=== PATIENT | female | born 1995 | race Caucasian/White ===

== ENCOUNTER 2017-08-10 19:50 | Emergency (ER) | payer BC ==
[2017-08-10 20:29] VITALS: BP 134/98
[2017-08-10] MEDS ORDERED: Albuterol/Ipratropium NEB.SOL* Albuterol 2.5 MG/Ipratropium 0.5 MG 3 ML INH ONE (21:12)
--- NOTE | 2017-08-10 21:13 | UC ---
Asthma HPI - HPI Summary HPI Summary: Patient here today with complaints of shortness of breath due to asthma Symptoms began at 1730 this afternoon - History of Current Complaint Chief Complaint: UCRespiratory Stated Complaint: SHORTNESS OF BREATH Time Seen by Provider: 08/10/17 20:53 Hx Obtained From: Patient Hx Last Menstrual Period: few months ago ?: No Onset/Duration: Sudden Onset Timing: Constant Initial Severity: Mild Current Severity: Mild Pain Intensity: 1 Location/Character: Cough (Nonproductive) Aggravating Factor(s): Nothing Alleviating Factor(s): Nothing Associated Signs and Symptoms: Positive: Negative - Allergy/Home Medications Allergies/Adverse Reactions: Allergies Allergy/AdvReac Type Severity Reaction Status Date / Time amoxicillin Allergy Nausea Verified 08/14/17 22:52 Penicillins Allergy Nausea Verified 08/14/17 22:52 PMH/Surg Hx/FS Hx/Imm Hx Previously Healthy: No Endocrine History: Hypothyroidism Respiratory History: Asthma GI/ History: Gastroesophageal Reflux - Surgical History Surgical History: Yes Surgery Procedure, Year, and Place: Breast reduction - Family History Known Family History: Positive: None - Social History Occupation: Student Lives: With Family Alcohol Use: None Substance Use Type: None Smoking Status (MU): Never Smoked Tobacco Review of Systems Constitutional: Negative Skin: Negative Eyes: Negative ENT: Negative Respiratory: Shortness Of Breath, Cough Cardiovascular: Negative Gastrointestinal: Negative Genitourinary: Negative Motor: Negative Neurovascular: Negative Musculoskeletal: Negative Neurological: Negative Psychological: Negative Is Patient Immunocompromised?: No All Other Systems Reviewed And Are Negative: Yes Physical Exam Triage Information Reviewed: Yes Appearance: Well-Appearing, No Pain Distress, Obese Vital Signs: Initial Vital Signs Temp 97.7 F 08/10/17 20:24 Pulse 136 08/10/17 20:24 Resp 18 08/10/17 20:24 BP 134/98 08/10/17 20:24 Pulse Ox 99 08/10/17 20:24 Vital Signs Reviewed: Yes Eye Exam: Normal Eyes: Positive: Conjunctiva Clear ENT Exam: Normal ENT: Positive: Normal ENT inspection, Hearing grossly normal, Pharynx normal, TMs normal, Uvula midline. Negative: Nasal congestion, Trismus, Muffled voice, Hoarse voice, Dental tenderness, Sinus tenderness Dental Exam: Normal Neck exam: Normal Neck: Positive: Supple, Nontender, No Lymphadenopathy Respiratory Exam: Normal Respiratory: Positive: Chest non-tender, No respiratory distress, No accessory muscle use, Wheezing Cardiovascular Exam: Normal Cardiovascular: Positive: No Murmur, Pulses Normal, Brisk Capillary Refill, Tachycardia Musculoskeletal Exam: Normal Musculoskeletal: Positive: Strength Intact, ROM Intact, No Edema Neurological Exam: Normal Neurological: Positive: Alert, Muscle Tone Normal Psychological Exam: Normal Psychological: Positive: Normal Response To Family, Age Appropriate Behavior Skin Exam: Normal Re-Evaluation - Re-Evaluation First Eval Change: Improved Asthma Course/Dx - Course Course Of Treatment: Patient reports having albuterol at home she is interested in following up with pulmonology patient was educated on how to use her albuterol how to use peak flow to predict changes in her asthma and the plan is that she is going to follow up with pulmonology and primary care - Differential Dx/Diagnosis Provider Diagnoses: Diagnosis acute exacerbation of asthma Discharge - Discharge Plan Condition: Stable Disposition: HOME Patient Education Materials: How to Use a Peak Flow Meter (ED), Bronchospasm ( ED) Referrals: Rose Mary Lewis MD [Medical Doctor] - 1 Week Andrew Guillaume MD [Primary Care Provider] -
== END 2017-08-10 22:19 | disposition home or self-care (01) ==
LOC: UCEAST 19:50
DX: J45.901 Unspecified asthma with (acute) exacerbation (principal); R00.0 Tachycardia, unspecified; E03.9 Hypothyroidism, unspecified; K21.9 Gastro-esophageal reflux disease without esophagitis; Z88.0 Allergy status to penicillin
CPT/HCPCS: 93005; 99212; A9270-GY; G0463

== ENCOUNTER 2017-08-14 22:43 | Emergency (ER) | payer BC ==
[2017-08-15] MEDS ORDERED: Metoprolol Tartrate TAB* 25 MG PO ONE (01:22)
[2017-08-15 02:03] VITALS: BP 132/89
--- NOTE | 2017-08-15 06:33 | ED ---
Ginny Vásquez Nilda, scribed for Durga Ruiz MD on 08/15/17 at 0230 . HPI Cardiac - HPI Summary HPI Summary: This patient is a 22 year old F presenting to [facility] accompanied by family and friend with a chief complaint of constant elevated heart rate (110 bpm at home) since 1700 today. The patient rates the pain 0/10 in severity. Symptoms aggravated by recent dosage increase in Methylphenidate, and alleviated by nothing. Patient reports anxiety, photophobia, nausea, and loss of appetite, but denies V/D. She states she felt similar symptoms on 08/10/17 when her medications were increased. PMHx includes hypothyroid and ADHD. - History of Current Complaint Chief Complaint: EDDysrhythmPalp Stated Complaint: RAPID HEART RATE Time Seen by Provider: 08/14/17 23:08 Hx Obtained From: Patient Hx Last Menstrual Period: few months ago Onset/Duration: Started Hours Ago, Still Present Timing: Constant Pain Intensity: 0 Pain Scale Used: 0-10 Numeric Chest Pain Radiates: No Character: Other: - elevated HR Aggravating Factor(s): Medications - recent dosage increase for Methylphenidate on 08/10/17 Alleviating Factor(s): Nothing Associated Signs and Symptoms: Positive: Other: - anxiety, photophobia, nausea, and loss of appetite, but denies V/D - Allergy/Home Medications Allergies/Adverse Reactions: Allergies Allergy/AdvReac Type Severity Reaction Status Date / Time amoxicillin Allergy Nausea Verified 08/14/17 22:52 Penicillins Allergy Nausea Verified 08/14/17 22:52 PMH/Surg Hx/FS Hx/Imm Hx Respiratory History: Reports: Hx Asthma Neurological History: Reports: Hx Migraine, Other Neuro Impairments/Disorders - fibromyalgia - Surgical History Surgery Procedure, Year, and Place: Breast reduction Infectious Disease History: No Infectious Disease History: Denies: Traveled Outside the [place] in Last 30 Days - Family History Known Family History: Positive: Cardiac Disease, Diabetes - Social History Alcohol Use: None Hx Substance Use: No Substance Use Type: Reports: None Hx Tobacco Use: No Smoking Status (MU): Never Smoked Tobacco Review of Systems Positive: Photophobia Positive: Other - elevated heart rate Positive: Nausea, Other - loss of appetite. Negative: Vomiting, Diarrhea Positive: Anxious All Other Systems Reviewed And Are Negative: Yes Physical Exam - Summary Physical Exam Summary: Appearance: Obese, no pain distress Skin: warm, dry, reflects adequate perfusion Head/face: normal Eyes: EOMI, JEFFREY ENT: normal Neck: supple, non-tender Respiratory: CTA, breath sounds present Cardiovascular: Tachycardia with resting HR 78 bpm, pulses symmetrical Abdomen: non-tender, soft Bowel: present Musculoskeletal: normal, strength/ROM intact Neuro: normal, sensory motor intact, A&Ox3 Psych: Normal Triage Information Reviewed: Yes Vital Signs On Initial Exam: Initial Vitals Temp Pulse Resp BP Pulse Ox 98.7 F 124 20 136/73 100 08/14/17 22:45 08/14/17 22:45 08/14/17 22:45 08/14/17 22:45 08/14/17 22:45 Vital Signs Reviewed: Yes Diagnostics - Vital Signs Vital Signs Temp Pulse Resp BP Pulse Ox 08/15/17 02:11 98 F 100 20 132/89 100 08/15/17 02:00 106 24 132/89 100 08/15/17 01:30 112 21 136/86 100 08/15/17 01:08 115 100 08/15/17 01:06 133/90 08/14/17 22:45 98.7 F 124 20 136/73 100 - Laboratory Lab Results: Lab Results 08/15/17 Range/Units 01:45 TSH 10.55 H (0.34-5.60) mcIU/mL Free T4 0.93 (0.61-1.12) ng/dL Lab Statement: Any lab studies that have been ordered have been reviewed, and results considered in the medical decision making process. - EKG 2259 Cardiac Rate: Tachycardia EKG Rhythm: Sinus Tachycardia - [address] Segment: Normal EKG Interpretation: nml axis Disposition - Course Course Of Treatment: Pt with HR 78 sleeping but over 100 sitting up etc. Single dose of metoprolol. All coincides with dose increase of methylphenidate. Return to old dose, f/u PMD. Assessment/Plan: An EKG reveals sinus tachycardia, 115 bpm, nl axis, nl ST. - Diagnoses Provider Diagnoses: Sinus tachycardia, Medication side effect Discharge - Discharge Plan Condition: Good Disposition: HOME Patient Education Materials: Tachycardia (ED) Referrals: Andrew Guillaume MD [Primary Care Provider] - Additional Instructions: Return to 18mg dose of your methylphenidate. Drink plenty of fluids. Have your doctor check the thyroid levels obtained tonight. Call your psychiatrist and inform them of the medication side effects. Return if worse or other concerns. The documentation as recorded by the Ginny hendrickson Nilda accurately reflects the service I personally performed and the decisions made by me, Durga Ruiz MD.
== END 2017-08-15 02:11 | disposition home or self-care (01) ==
LOC: ED 22:43
DX: R00.0 Tachycardia, unspecified (principal); T43.635A Adverse effect of methylphenidate, initial encounter; Z88.3 Allergy status to other anti-infective agents; Z88.0 Allergy status to penicillin
CPT/HCPCS: 36415; 84439; 84443; 93005; 99282

== ENCOUNTER 2017-08-29 12:58 | Emergency (ER) | payer BC ==
--- OUTSIDE RECORDS SUMMARY | 2017-08-29 13:53 | XMS REPORT ---
:1995 External Reference #:[id number] Author Organization [employer] Address [address] [place] [address] Phone [phone] Care Team Providers Name Role Phone Andrew Guillaume M.D. Primary Care Physician Unavailable Payers Type Date Identification Numbers Payment Provider Subscriber Commercial Policy Number: [id number] [place] Plan Raf Nicole PayID: [id number] [address] [place] [address] Problems Date Description Provider Status Onset: Primary fibromyalgia syndrome Active Onset: Migraine Active Onset: Mild depression Active Onset: Hyperthyroidism Active Onset: Gastroesophageal reflux disease Active Onset: Asthma Active Onset: 08/23/2017 Tear film insufficiency Pushpa Jean-Baptiste O.D. Active Onset: 07/20/2016 Regular astigmatism Pushpa Jean-Baptiste O.D. Active Onset: 07/20/2016 Myopia Pushpa Jean-Baptiste O.D. Active Onset: 04/14/2015 Exotropia Pushpa Jean-Baptiste O.D. Active Onset: 03/11/2015 Subjective visual disturbance Pushpa Jean-Baptiste O.D. 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 Student ETOH Use Denies alcohol use Smoking Patient has never smoked Recreational Drug Use Denies Drug Use Daily Caffeine Does Not Consume Caffeine Allergies, Adverse Reactions, Alerts Date Description Reaction Status Severity Comments 03/11/2015 Penicillin active Rash 03/11/2015 Amoxicillin active Rash Medications Medication Date Status Form Strength Qnty SIG Indications Ordering Provider Omeprazole / Active Capsules DR 20mg 2 twice a Unknown 0000 day Levothyroxine / Active Tablets 125mcg Unknown Sodium 0000 Depakote / Active Tablets DR 500mg 2 every Unknown 0000 day Nortriptyline / Active Capsules 50mg Unknown HCL 0000 Kristina-Be / Active Tablets 0.35mg Unknown 0000 Fluticasone / Active Suspension 50mcg/Act Unknown Propionate 0000 Symbicort / Active Aerosol 80-4.5mcg/ Unknown 0000 Act Oxycodone-Aceta / Active Tablets 5-325mg Take One Unknown minophen 0000 Tablet By Mouth Every 8 Hours as Needed For Pain Maximum Suzanne Buspirone HCL / Active Tablets 10mg Unknown 0000 Results Description No Information Procedures Date CPT Code Description Status 07/20/2016 90125 Determination Of Refractive State Completed 07/20/2016 85847 Est Patient Comprehensive Exam Completed 04/14/2015 93372 Visual Field Exam Extended Completed 04/14/2015 25494 Est Patient Intermediate Exam Completed 03/11/2015 13684 Determination Of Refractive State Completed 03/11/2015 43311 Est Patient Intermediate Exam Completed 06/16/2014 48478 Determination Of Refractive State Completed 06/16/2014 78875 Est Patient Comprehensive Exam Completed 06/10/2013 06938 Est Patient Comprehensive Exam Completed 06/21/2012 51087 Est Patient Comprehensive Exam Completed 06/21/2012 21330 Determination Of Refractive State Completed 11/10/2011 48872 Determination Of Refractive State Completed 11/10/2011 89538 Est Patient Comprehensive Exam Completed 10/14/2010 45808 Determination Of Refractive State Completed 10/14/2010 94903 Est Patient Comprehensive Exam Completed 09/13/2009 07418 Fundus Photography With Interpretation And Report Completed 09/13/2009 32450 Determination Of Refractive State Completed 09/13/2009 11503 New Patient Comprehensive Exam Completed Encounters Type Date Location Provider CPT E/M Dx Office Visit 10/04/2009 4:00p Henry Leigh MD, Saundra Melendrez, [phone] renate O.Patricia Plan of Care 08/23/2017 - Pushpa K. [place], O.D.H04.123 Dry eye syndrome of bilateral lacrimal glandsComments:Both of your eyes appear to be dry. Use artificial tears as directed. You can use the tears more often if you are reading a book or are on the computer, as we tend to blink less, making our eyes dry out more.[facility] offers a few items in our optical department to help alleviate dry eye symptoms.Follow up:2 [id number] Myopia, bilateralComments:You have Myopia, or near sightedness. I have given you a prescription for glasses.H52.223 Regular astigmatism, bilateralComments:Smoking can increase the risk of developing or worsening any eye related disease, as well as affect your overall health. If you are a smoker, we strongly recommend that you quit.If you are not a smoker, we strongly recommend that you do not start. Astigmatism is a common vision condition that happens when a person's cornea is not symmetrical. Dr. Jean-Baptiste has given you a prescription to correct for this.
--- NOTE | 2017-08-29 14:19 | RAD ---
HISTORY: Dyspnea COMPARISONS: October 26, 2010 VIEWS: 4: Frontal dual-energy and lateral views of the chest. FINDINGS: CARDIOMEDIASTINAL SILHOUETTE: The cardiomediastinal silhouette is normal. CATIE: The catie are normal. PLEURA: The costophrenic angles are sharp. No pleural abnormalities are noted. LUNG PARENCHYMA: The lungs are clear. ABDOMEN: The upper abdomen is clear. There is no subphrenic gas. BONES AND SOFT TISSUES: No bone or soft tissue abnormalities are noted. OTHER: None. IMPRESSION: NO ACTIVE CARDIOPULMONARY DISEASE.
[2017-08-29 15:34] LABS: ABS Basophils 0 10^3/ul (0-0.2); ABS Eosinophils 0 10^3/ul (0-0.6); ABS Lymphocytes 2.8 10^3/ul (1.0-4.8); ABS Monocytes 0.4 10^3/ul (0-0.8); ABS Neutrophils 4.2 10^3/ul (1.5-7.7); ABS Nucleated RBC 0 10^3/ul; Eosinophil % 0.4 % (0-6); Hematocrit 37 % (35-47); Hemoglobin 12.2 g/dl (12.0-16.0); Lymphocyte % 37.4 % (25-47); Mean Corpuscular HGB Conc 33 g/dl (31-36); Mean Corpuscular Hemoglobin 27 pg (27-31); Mean Corpuscular Volume 81 fL (80-97); Mean Platelet Volume 9 um3 (7.4-10.4); Nucleated Red Blood Cells % 0; Platelet Count 237 10^3/ul (150-450); Red Blood Count 4.51 10^6/ul (4.0-5.4); Red Cell Distribution Width 14 % (10.5-15); White Blood Count 7.5 10^3/ul (3.5-10.8)
[2017-08-29 15:42] LABS: EGFR Non-African American 93.7 (>60)
[2017-08-29] MEDS ORDERED: Metoprolol Succinate XL TAB* 25 MG PO ONE (16:15)
[2017-08-29 17:20] VITALS: BP 133/76
--- NOTE | 2017-09-05 23:39 | ED ---
Ravi Vásquez Julia, scribed for Vivek Chris MD on 08/29/17 at 1316 . Complex/Multi-Sys Presentation - HPI Summary HPI Summary: This patient is a 22 year old F presenting to [facility] with a chief complaint of elevated heart rate and SOB for the past two weeks. Patient reports dry mouth and intermittent sharp chest pain that moves location. Patient denies recent fall and lower extremity edema at baseline. She states that she had similar symptoms two weeks ago and was instructed to discontinue Methylphenidate after a recent increase in dosage. Patient states that her asthma has been bothering her recently. Medications were reviewed, including Omeprazole, Depakote, Nortriptyline, and Symbicort. - History Of Current Complaint Chief Complaint: EDDysrhythmPalp Hx Obtained From: Patient Onset/Duration: Lasting Weeks, Still Present Timing: Intermittent, Lasting:, Weeks Location: Pain At: - chest Character: Sharp Associated Signs And Symptoms: Positive: Other - elevated heart rate, SOB, dry mouth and intermittent sharp chest pain that moves location. - Allergies/Home Medications Allergies/Adverse Reactions: Allergies Allergy/AdvReac Type Severity Reaction Status Date / Time amoxicillin Allergy Nausea Verified 08/14/17 22:52 Penicillins Allergy Nausea Verified 08/14/17 22:52 PMH/Surg Hx/FS Hx/Imm Hx Respiratory History: Reports: Hx Asthma Neurological History: Reports: Hx Migraine, Other Neuro Impairments/Disorders - fibromyalgia, Psychiatric History: Reports: Hx Attention Deficit Hyperactivity Disorder, Hx Depression - Surgical History Surgery Procedure, Year, and Place: Breast reduction Infectious Disease History: No Infectious Disease History: Denies: Traveled Outside the [place] in Last 30 Days - Family History Known Family History: Positive: Cardiac Disease, Diabetes - Social History Alcohol Use: None Hx Substance Use: No Substance Use Type: Reports: None Hx Tobacco Use: No Smoking Status (MU): Never Smoked Tobacco Review of Systems Constitutional: Other - dry mouth Cardiovascular: Other - elevated heart rate Positive: Chest Pain Positive: Shortness Of Breath All Other Systems Reviewed And Are Negative: Yes Physical Exam - Summary Physical Exam Summary: Appearance: Well appearing, no pain distress Skin: warm, dry, reflects adequate perfusion Head/face: normal Eyes: EOMI, JEFFREY ENT: normal Neck: supple, non-tender Respiratory: CTA, breath sounds present Cardiovascular: RRR, pulses symmetrical Abdomen: non-tender, soft Bowel: present Musculoskeletal: normal, strength/ROM intact Neuro: normal, sensory motor intact, A&Ox3 Triage Information Reviewed: Yes Vital Signs On Initial Exam: Initial Vitals Temp Pulse Resp BP Pulse Ox 98.2 F 146 17 130/77 100 08/29/17 13:00 08/29/17 13:00 08/29/17 13:00 08/29/17 13:00 08/29/17 13:00 Vital Signs Reviewed: Yes Diagnostics - Vital Signs Vital Signs Temp Pulse Resp BP Pulse Ox 08/29/17 13:00 98.2 F 146 17 130/77 100 - Laboratory Result Diagrams: 08/29/17 14:10 08/29/17 14:10 Lab Statement: Any lab studies that have been ordered have been reviewed, and results considered in the medical decision making process. - Radiology CXR Radiology Interpretation Completed By: Radiologist - NO ACTIVE CARDIOPULMONARY DISEASE. ED Physician has reviewed this report. - EKG 1311 Cardiac Rate: Tachycardia - 136 BPM EKG Rhythm: Sinus Tachycardia EKG Interpretation: normal 1604 Cardiac Rate: Tachycardia - 133 BPM EKG Rhythm: Sinus Tachycardia Complex Multi-Symp Course/Dx Course Of Treatment: This patient presents of elevated heart rate and SOB for the past two weeks. Patient reports dry mouth and intermittent sharp chest pain that moves location. Medications were reviewed, including Omeprazole, Depakote, Nortriptyline, and Symbicort. CXR is unremarkable. An EKG reveals tachycardia, but is otherwise normal. A second EKG reveals tachycardia but is otherwise normal. Patient is given Metoporol. - Diagnoses Provider Diagnoses: tachycardia secondary to medication Discharge - Discharge Plan Condition: Good Disposition: HOME Patient Education Materials: Tachycardia (ED) Referrals: Andrew Guillaume MD [Primary Care Provider] - The documentation as recorded by the Ravi hendrickson Julia accurately reflects the service I personally performed and the decisions made by me, Vivek Chris MD.
== END 2017-08-29 17:20 | disposition home or self-care (01) ==
LOC: ED 12:58
DX: R00.0 Tachycardia, unspecified (principal); R07.9 Chest pain, unspecified; R06.02 Shortness of breath
CPT/HCPCS: 36415; 71046; 80053; 80307; 84443; 85025; 85379; 93005; 99282